=== PATIENT | male | born 1995 ===

== ENCOUNTER 2020-12-18 20:15 | Emergency (ER) | payer SELFPAY ==
[~2020-12-18] VITALS: Ht 175.3 cm; Wt 65.3 kg
--- NOTE | 2020-12-18 20:40 | NUR ---
PT BROUGHT BACK TO ROOM FROM TRIAGE. PT CO N/V/D X2 HOURS. PT STATED THAT HE HAD ONE EPISODE OF DIARRHEA AND 4 EPISODES OF VOMITING. PT STATED THAT HE ONLY ATE CEREAL AND CAKE EARLIER TODAY. PT DENIES ANY FEVER OR BLOOD IN VOMIT OR STOOL.
[2020-12-18] MEDS ORDERED: DICYCLOMINE 10 MG/ML, 2ML ONE (20:46)
[2020-12-18] MEDS ORDERED: ONDANSETRON 2MG/ML, 2ML ONE (20:46)
[2020-12-18] MEDS ORDERED: FAMOTIDINE 20 MG/2 ML ONE (20:46)
[2020-12-18] MEDS ORDERED: ONDANSETRON 2MG/ML, 2ML IVPush ONE (21:00)
[2020-12-18] MEDS ORDERED: SODIUM CHLORIDE 0.9% 1,000ML IVBOLUS ONE ×2 (21:00→22:00)
[2020-12-18] MEDS ORDERED: SODIUM CHLORIDE FLUSH 10ML SYR IVF ONE (21:00)
[2020-12-18] MEDS ORDERED: FAMOTIDINE 20 MG/2 ML IVPush ONE (21:00)
[2020-12-18] MEDS ORDERED: DICYCLOMINE 10 MG/ML, 2ML IM ONE (21:00)
[2020-12-18 21:01] LABS: BASOPHILS % (AUTO) 1 % (0-1); EOSINOPHILS % (AUTO) 1 % (1-7); LYMPHOCYTES % (AUTO) 13 % (22-44); MEAN CORPUSCULAR HEMOGLOBIN 31.4 pg (27.5-34.5); MEAN CORPUSCULAR HGB CONC 35.8 g/dL (33.2-36.2); MONOCYTES % (AUTO) 5 % (2-9); NEUTROPHILS % (AUTO) 81 % (42-75); PLATELET COUNT 234 x10^3/uL (130-400); RED BLOOD COUNT 5.74 x10^6/uL (4.38-5.82); RED CELL DISTRIBUTION WIDTH 12.5 % (9.4-14.8)
--- NOTE | 2020-12-18 21:04 | NUR ---
REPORT GIVEN TO MISTY SOLIS
[2020-12-18 21:10] LABS: ALANINE AMINOTRANSFERASE 46 U/L (12-78); ALBUMIN 5.9 g/dL (3.4-5.0); ANION GAP 10 mmol/L (5-15); CALCIUM 10.2 mg/dL (8.5-10.1); CHLORIDE 110 mmol/L (98-107); CREATININE 1.07 mg/dL (0.7-1.3); MD NO
[2020-12-18 21:13] LABS: ALKALINE PHOSPHATASE 98 U/L (45-117); BILIRUBIN,TOTAL 4.1 mg/dL (0.2-1.0); TOTAL PROTEIN 9.3 g/dL (6.4-8.2)
--- NOTE | 2020-12-18 21:37 | NUR ---
PT REMINDED OF NEED OF URINE FOR UA.
--- NOTE | 2020-12-18 22:15 | NUR ---
PT IN BED WITH NO SIGNS OR SYMPTOMS OF ACUTE DISTRESS NOTED RESPIRATIONS EVEN AND UNLABORED PT ABLE TO VOID INTO URNIAL, NOTED SMALL AMOUNT OF ELMER URINE. SAMPLE COLLECTED AND SENT TO LAB. PT PROVIDED GLYCERIN SWABS FOR DRY MOUTH. PT DENIES NEED AT THIS TIME, AWARE AND AGREEABLE WITH PLAN OF CARE. PT DECLINES MONITOR AT THIS TIME, CALL LIGHT IN HAND.
[2020-12-18 22:33] LABS: MICROSCOPIC INDICATED
[2020-12-18 23:01] VITALS: BP 118/79
== END 2020-12-18 23:03 | disposition home or self-care (01) ==
LOC: ED 22:04
DX: K52.29 Other allergic and dietetic gastroenteritis and colitis (principal); E86.0 Dehydration; E80.4 Gilbert syndrome; R11.2 Nausea with vomiting, unspecified; R19.7 Diarrhea, unspecified; R10.9 Unspecified abdominal pain; K59.00 Constipation, unspecified
CPT/HCPCS: 36415; 74021; 80053; 81001; 83690; 85025; 87086; 96361; 96372; 96374; 96375; 99284; J0500; J2405; J7030